=== PATIENT | female | born 1990 | race African-American/Black ===

== ENCOUNTER 2016-07-24 10:18 | Emergency (ER) | payer OTHER ==
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
[2016-07-24] MEDS ORDERED: TORADOL IM ONE (11:18)
[2016-07-24 11:37] VITALS: BP 114/73
--- NOTE | 2016-07-24 11:59 | Diag Imaging Result Document ---
PROCEDURE NAME: SHOULDER-LEFT - 07/24/2016 LEFT SHOULDER, FOUR VIEWS INCLUDING AN AXILLARY Y VIEW: FINDINGS: The distal clavicle is slightly superiorly placed from its normal position with the acromion. No fracture. The humeral head is not dislocated. IMPRESSION: Slight acromioclavicular separation.
== END 2016-07-24 11:44 | disposition home or self-care (01) ==
LOC: P.ED 10:18
DX: S40.012A Contusion of left shoulder, initial encounter (principal); M25.512 Pain in left shoulder; Y09 Assault by unspecified means
CPT/HCPCS: 81025; 96372; J1885